=== PATIENT | female | born 1950 | race Caucasian/White ===

== ENCOUNTER → 2024-05-09 10:38 | Outpatient (CLI) | payer MEDICARE, OTHER, SELFPAY ==
--- NOTE | 2024-05-09 10:42 | DI.CT.S_ITS ---
PROCEDURE: CT HEAD/BRAIN WO CON INDICATIONS: INJURY DUE TO FALL TECHNIQUE: Noncontrast 4.5 mm thick angled axial sections acquired from the foramen magnum to the vertex, with coronal and sagittal reformats. For radiation dose reduction, the following was used: automated exposure control, adjustment of mA and/or kV according to patient size. COMPARISON: [facility], CR, XR SHOULDER RT MIN 2V, 05/09/2024, 10:53. FINDINGS: Image quality: Diagnostic. CSF spaces: Basal cisterns are patent. No extra-axial fluid collections. The ventricles are symmetric in size and shape. Brain: No intracranial bleeds or masses. There is cerebral volume loss for age, with resultant ventricular and sulcal prominence. There are periventricular and deep white matter chronic small vessel ischemic changes. There is intracranial internal carotid artery atherosclerosis. Skull and face: Calvarium and visualized facial bones appear intact, without suspicious lesions. Sinuses: Visualized sinuses and mastoids are clear. IMPRESSION: No acute intracranial hemorrhage is seen. No displaced calvarial fracture can be seen. No acute intracranial pathology. Dictated by: Louis Kingston M.D. on 05/09/2024 at 12:07 Approved by: Louis Kingston M.D. on 05/09/2024 at 12:08
--- NOTE | 2024-05-09 10:54 | DI.RAD.S_ITS ---
PROCEDURE: XR SHOULDER RT MIN 2V INDICATIONS: SHOULDER PAIN TECHNIQUE: 3 views of the shoulder were acquired. COMPARISON: None. FINDINGS: Bones: No fractures or dislocations. Mild right shoulder DJD. No suspicious bony lesions. Suspect prior right-sided rib fracture only seen on 1 projection. Soft tissues: No suspicious soft tissue calcifications. IMPRESSION: Mild right shoulder DJD. Dictated by: Giovanni Poole M.D. on 05/09/2024 at 23:02 Approved by: Giovanni Poole M.D. on 05/09/2024 at 23:04
== END ==
PROVIDERS: PCP Internal Medicine
DX: G44.209 Tension-type headache, unspecified, not intractable (principal); M19.011 Primary osteoarthritis, right shoulder; M25.511 Pain in right shoulder
CPT/HCPCS: 70450; 73030